=== PATIENT | male | born 1940 | race Caucasian/White ===

== ENCOUNTER 2018-10-21 09:57 | Inpatient (IN) | payer OTHER ==
[~2018-10-21] VITALS: Ht 152.4 cm; Wt 87.1 kg
[~2018-10-21 09:57] MED LIST: Apresoline 20MG Vial IV; Coreg PO; D5W IV; DOLOGEN CAPLET1 EACH PO; FERRLECIT IV; INSULIN ISOPHANE SUBCUTANEO; MEDROL4 MG PO; OXYC1TAB9 PO; Senokot-S Tablet PO; TAMS0.4C PO; XARELTO 10MG PO; [UNRECOGNIZED DRUG - OTHER] IV
[2018-10-21] MEDS ORDERED: CALCIUM 600+D1 EACH (10:18)
[2018-10-21] MEDS ORDERED: SULFATRIM 800-120 ML (10:18)
[2018-10-21] MEDS ORDERED: PYRIDIUM200 MG (10:18)
[2018-10-21] MEDS ORDERED: ZANTAC300 MG (10:19)
[2018-10-21] MEDS ORDERED: DIALYVITE TABL1 EACH (10:19)
[2018-10-21] MEDS ORDERED: ADULT LOW DOSE81 M1 (10:19)
[2018-10-21] MEDS ORDERED: COZAAR50 MG (10:20)
[2018-10-21] MEDS ORDERED: EZETIMIBE-SIMV1 EACH (10:20)
[2018-10-21] MEDS ORDERED: STERILE SALINE126 ML (10:20)
== END 2018-10-26 12:23 | disposition home or self-care (01) | DRG 726 ==
LOC: ER 09:57 → SEC-K 13:15 → MEDJ 13:15
PROVIDERS: ADMIT Internal Medicine
PROC: BW21ZZZ Computerized Tomography (CT Scan) of Abdomen and Pelvis (ICD-10-PCS; principal; 2018-10-21)
DX: N40.1 Benign prostatic hyperplasia with lower urinary tract symptoms (principal); N39.0 Urinary tract infection, site not specified; R33.8 Other retention of urine; E11.9 Type 2 diabetes mellitus without complications; I10 Essential (primary) hypertension; N13.5 Crossing vessel and stricture of ureter without hydronephrosis; Z96.652 Presence of left artificial knee joint; B96.29 Other Escherichia coli [E. coli] as the cause of diseases classified elsewhere

== ENCOUNTER 2024-07-16 16:46 | Emergency (ER) | payer OTHER ==
[~2024-07-16] VITALS: Ht 177.8 cm; Wt 94.3 kg
[~2024-07-16 16:46] MED LIST changes: +ADULT LOW DOSE81 M1; +CALCIUM 600+D1 EACH; +COZAAR50 MG; +DIALYVITE TABL1 EACH; +EZETIMIBE-SIMV1 EACH; +PYRIDIUM200 MG; +STERILE SALINE126 ML; +SULFATRIM 800-120 ML; +ZANTAC300 MG
[2024-07-16] MEDS ORDERED: PLAVIX75 MG (17:13)
[2024-07-16] MEDS ORDERED: SYMBICORT 16010.2 GM (17:13)
[2024-07-16] MEDS ORDERED: COZAAR100 MG (17:14)
[2024-07-16] MEDS ORDERED: ESBRIET267 MG (17:14)
[2024-07-16] MEDS ORDERED: CRESTOR40 MG (17:14)
[2024-07-16] MEDS ORDERED: PANTOPRAZOLE SO40 MG (17:14)
[2024-07-16] MEDS ORDERED: ZETIA10 MG (17:14)
[2024-07-16] MEDS ORDERED: SYNTHROID50 MCG (17:15)
[2024-07-16] MEDS ORDERED: HORIZANT300 MG (17:15)
[2024-07-16] MEDS ORDERED: TAMS0.4C (17:15)
[2024-07-16] MEDS ORDERED: HYDRODIURIL12.5 MG (17:15)
[2024-07-16] MEDS ORDERED: ENALAPRILAT DIHYDRATE 2.5 MG/2 ML VIAL IV STA (17:55)
== END 2024-07-16 19:41 | disposition home or self-care (01) ==
LOC: ER 16:48
DX: I10 Essential (primary) hypertension (principal); Z88.0 Allergy status to penicillin
CPT/HCPCS: 96365; 99282; J3490